=== PATIENT | female | born 1955 | race American Indian/Alaskan Native ===

== ENCOUNTER 2022-01-15 09:55 | Emergency (ER) | payer MEDICARE ==
[2022-01-15 10:02] VITALS: BP 138/84
--- NOTE | 2022-01-15 11:51 | Emergency Department Report ---
ED Extremity Problem HPI - General Chief complaint: Extremity Injury, Lower Stated complaint: FOOT PAIN Source: EMS Mode of arrival: Stretcher Limitations: No Limitations - History of Present Illness Initial comments: Patient is a 66-year-old -[place] female with a history of chronic gouty arthropathy who presents to the ED with acute exacerbation of her chronic pain characterized by left foot pain with swelling for the last 1 week, worse in the last 2 days. Patient states that the pain initially was progressively mild but started getting worse about 3 days ago site that now she is unable to bear weight on the left foot because of worsening pain. Patient denies fall, traumatic injury, high heavy lifting, chest pain or shortness of breath, nausea, vomiting, fever, chills, back pain or change in vision and numbness and tingling or weakness of lower extremities bilaterally. MD Complaint: extremity pain (left foot pain and swelling), extremity swelling (left foot), joint swelling (left foot), joint paint (left foot) -: Sudden, week(s) (1) Location: lower extremity (Left foot pain and swelling) History of Same: Yes (Chronic gouty arthropathy) -: Yes arthralgia (Left foot pain and swelling), No fever, No associated dyspnea, No associated chest pain Radiation: distal Severity scale (0 -10): 9 Quality: aching, sharp Consistency: constant Improves with: nothing Worsens with: weight bearing, walking, palpation Associated Symptoms: denies other symptoms, arthralgias (Left foot pain and swelling). denies: chest pain, shortness of breath, fever, myalgias, rash - Related Data Previous Rx's Medication Instructions Recorded Last Taken Type Colchicine 0.6 mg PO DAILY #15 tab 01/15/22 Unknown Rx Indomethacin 50 mg PO Q8H #60 cap 01/15/22 Unknown Rx predniSONE [Deltasone] 60 mg PO QDAY #15 tab 01/15/22 Unknown Rx traMADoL [Ultram] 50 mg PO Q6HR PRN #12 tablet 01/15/22 Unknown Rx Allergies Allergy/AdvReac Type Severity Reaction Status Date / Time No Known Allergies Allergy Verified 01/15/22 10:02 ED Review of Systems ROS: Stated complaint: FOOT PAIN Other details as noted in HPI Constitutional: denies: chills, fever Eyes: denies: eye pain, eye discharge, vision change ENT: denies: ear pain, throat pain Respiratory: denies: cough, shortness of breath, wheezing Cardiovascular: denies: chest pain, palpitations Endocrine: no symptoms reported Gastrointestinal: denies: abdominal pain, nausea, diarrhea Genitourinary: denies: urgency, dysuria, discharge Musculoskeletal: joint swelling (Left foot pain and swelling), arthralgia (Left foot pain and swelling). denies: back pain, myalgia Skin: denies: rash, lesions Neurological: denies: headache, weakness, paresthesias Psychiatric: denies: anxiety, depression Hematological/Lymphatic: denies: easy bleeding, easy bruising ED Past Medical Hx - Medications Home Medications: Home Medications Medication Instructions Recorded Confirmed Last Taken Type Colchicine 0.6 mg PO DAILY #15 tab 01/15/22 Unknown Rx Indomethacin 50 mg PO Q8H #60 cap 01/15/22 Unknown Rx predniSONE [Deltasone] 60 mg PO QDAY #15 tab 01/15/22 Unknown Rx traMADoL [Ultram] 50 mg PO Q6HR PRN #12 tablet 01/15/22 Unknown Rx ED Physical Exam - General Limitations: No Limitations General appearance: alert, in no apparent distress - Head Head exam: Present: atraumatic, normocephalic, normal inspection - Eye Eye exam: Present: normal appearance, PERRL, EOMI Pupils: Present: normal accommodation - ENT ENT exam: Present: normal exam, normal orophraynx, mucous membranes moist, TM's normal bilaterally, normal external ear exam - Neck Neck exam: Present: normal inspection, full ROM. Absent: tenderness - Respiratory Respiratory exam: Present: normal lung sounds bilaterally. Absent: respiratory distress, wheezes, rales, rhonchi, chest wall tenderness, accessory muscle use, decreased breath sounds, prolonged expiratory - Cardiovascular Cardiovascular Exam: Present: regular rate, normal rhythm, normal heart sounds. Absent: systolic murmur, diastolic murmur, rubs, gallop - GI/Abdominal GI/Abdominal exam: Present: soft, normal bowel sounds. Absent: tenderness, guarding, rebound, hyperactive bowel sounds, hypoactive bowel sounds, organomegaly - Extremities Exam Extremities exam: Present: normal inspection, full ROM, tenderness (Palpable left foot tenderness with mild swelling), joint swelling (Palpable left foot tenderness and mild swelling). Absent: normal capillary refill, pedal edema, calf tenderness - Back Exam Back exam: Present: normal inspection, full ROM. Absent: tenderness, CVA tenderness (R), CVA tenderness (L), muscle spasm, paraspinal tenderness, vertebral tenderness - Neurological Exam Neurological exam: Present: alert, oriented X3, CN II-XII intact, normal gait, reflexes normal - Psychiatric Psychiatric exam: Present: normal affect, normal mood - Skin Skin exam: Present: warm, dry, intact, normal color. Absent: rash ED Course Vital Signs 01/15/22 09:59 Temperature 98.6 F Pulse Rate 85 Respiratory 18 Rate Blood Pressure 138/84 [Left] O2 Sat by Pulse 99 Oximetry ED Medical Decision Making - Medical Decision Making This is a 66-year-old -[place] female with a history of chronic gouty arthropathy who presents to the ED with acute exacerbation of her chronic pain characterized by left foot pain with swelling for the last 1 week, worse in the last 2 days. Patient states that the pain initially was progressively mild but started getting worse about 3 days ago site that now she is unable to bear weight on the left foot because of worsening pain. In the ED, patient is alert and oriented x3 and is not in any distress. Patient was discharged home on medications based on the history and physical exam findings suspected to be due to gouty arthropathy flareup. Patient was advised to follow-up with her primary care physician in 7 to 10 days for reevaluation or return to the ED immediately if symptoms get worse. - Differential Diagnosis Gouty arthropathy; osteoarthritis; muscle strain; chronic pain Critical care attestation.: If time is entered above; I have spent that time in minutes in the direct care of this critically ill patient, excluding procedure time. ED Disposition Clinical Impression: Chronic gouty arthropathy, Pain in left ankle and joints of left foot Disposition: HOME / SELF CARE / HOMELESS Is pt being admited?: No Does the pt Need Aspirin: No Condition: Stable Instructions: Low-Purine Eating Plan, Joint Pain, [id number], Musculoskeletal Pain Additional Instructions: Take medication with food, drink plenty of fluids, follow-up with your primary care physician in 7 to 10 days for reevaluation. Return to the ED immediately if symptoms get worse. Prescriptions: Colchicine 0.6 mg PO DAILY #15 tab predniSONE [Deltasone] 60 mg PO QDAY #15 tab Indomethacin 50 mg PO Q8H #60 cap traMADoL [Ultram] 50 mg PO Q6HR PRN #12 tablet PRN Reason: Pain Referrals: [facility] [Provider Group] - 7-10 days Time of Disposition: 11:52 Print Language: TOGOLESE
== END 2022-01-15 12:55 | disposition home or self-care (01) ==
LOC: ED 09:55
DX: M1A.9XX0 Chronic gout, unspecified, without tophus (tophi) (principal); M25.572 Pain in left ankle and joints of left foot
CPT/HCPCS: 99283

== ENCOUNTER 2022-04-05 00:25 | Emergency (ER) | payer MEDICARE ==
[2022-04-05 05:27] VITALS: BP 140/72
== END 2022-04-05 11:17 | disposition left against medical advice (07) ==
LOC: ED 00:25
DX: R10.31 Right lower quadrant pain (principal); Z53.21 Procedure and treatment not carried out due to patient leaving prior to being seen by health care provider